=== PATIENT | female | born 1950 | race Caucasian/White ===

== ENCOUNTER → 2017-01-04 | Outpatient (CLI) | payer MEDICARE, OTHER ==
[~2017-01-04] MED LIST: FISH OIL1 IU PO; FLAXSEED OIL1 CAP PO; GARLIC; LEVOTHYROXINE PO; MVI; PREMARIN 0.60.625 MG PO; VICODIN 5/5001 UDTAB PO
== END ==
LOC: MC.RAD 07:20
DX: Z12.31 Encounter for screening mammogram for malignant neoplasm of breast (principal)